=== PATIENT | female | born 1955 | race Caucasian/White ===

== ENCOUNTER 2022-05-07 13:02 | Outpatient (CLI) | payer MEDICARE, BC | END 2022-05-07 13:03 | disposition home or self-care (01) | LOC: CSHMAMMO 13:02 | PROVIDERS: ATTEND Student in an Organized Health Care Education/Training Program | DX: Z12.31 Encounter for screening mammogram for malignant neoplasm of breast (principal); Z13.820 Encounter for screening for osteoporosis; Z78.0 Asymptomatic menopausal state | CPT/HCPCS: 77063; 77067; 77080 ==

== ENCOUNTER 2023-09-06 16:01 | Outpatient (CLI) | payer MEDICARE, BC | END 2023-09-06 16:02 | disposition home or self-care (01) | LOC: CSHCT 16:01 | PROVIDERS: ATTEND Student in an Organized Health Care Education/Training Program | DX: R06.09 Other forms of dyspnea (principal); R07.9 Chest pain, unspecified; R79.89 Other specified abnormal findings of blood chemistry | CPT/HCPCS: 71275 ==

== ENCOUNTER 2024-01-29 08:26 | Outpatient (CLI) | payer BC, MEDICARE | END 2024-01-29 08:27 | disposition home or self-care (01) | LOC: CSHULT 08:26 | PROVIDERS: ATTEND Student in an Organized Health Care Education/Training Program | DX: R10.84 Generalized abdominal pain (principal); K76.0 Fatty (change of) liver, not elsewhere classified | CPT/HCPCS: 76700; 76856 ==